=== PATIENT | male | born 1930 | race Caucasian/White ===

== ENCOUNTER 2016-06-04 23:32 | Inpatient (IN) | payer MEDICARE, OTHER ==
--- NOTE | ~2016-06-04 | HP ---
History And Physical [facility] [address] [place]. [address] NAME: ELÍAS ROCHA : 30 STATUS : ADM Nya PAT#: [id number] AGE: 85 ADM/REG DATE : 06/05/16 MR#: [id number] REPORT SERV DATE: 06/05/16 DICTATED BY: RAYMOND QUESADA DATE: 06/05/16 REPORT STATUS : Draft TRANSCRIBED BY: MODL DATE: 06/05/16 DATE OF ADMISSION: 06/05/2016 CHIEF COMPLAINT: Shortness of breath. HISTORY OF PRESENT ILLNESS: This is an 85-year-old male with a history of atrial fibrillation followed by Dr. Marvin Spencer, pacemaker placement, history of nonsustained ventricular tachycardias, and critical aortic stenosis, who was in his usual state of health until yesterday in the evening when he started having profound shortness of breath. He also had some confusion and family decided to bring him to the emergency room to be evaluated. According to the patient's son, who is at bedside, Mr. Rocha has had serious health issues since late 01/2016 on into this year when he has been in and out of hospitals repeatedly for one thing or the other. Several of these have been due to volume overload and with trouble breathing. In the emergency room, initial workup revealed he had a BNP of 1580. His lactate was 1.4. Chest x-ray showed no change from prior films. EKG showed a paced ventricular rhythm at a rate of 74 per minute. Hospitalist Service is asked to admit him for further evaluation, management of his exacerbation of COPD, and volume overload. At the time of my evaluation, he denied any chest pain, palpitations, or orthopnea. His son says he did have a cough, which was essentially nonproductive, not associated with any hemoptysis, night sweats, or weight loss. He has not had any recent falls or loss of consciousness. He did not have any fevers or chills. No history of nausea, vomiting, or diarrhea. No history of bleeding anywhere. No other history of recent travel or exposures other than those mentioned above. PAST MEDICAL HISTORY: Significant for history of nonsustained ventricular tachycardia; history of congestive heart failure; pacemaker placement; severe critical aortic stenosis of 0.8 meter square in 02/2016; history of renal artery stenosis; obstructive sleep apnea, on CPAP therapy; hypogonadism; chronic elevation in troponin; and carotid endarterectomy. SOCIAL HISTORY: He has a history of smoking. No history of recent alcohol use or recreational drug use. 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 FAMILY HISTORY: Noncontributory. MEDICATIONS: His medications at home were reviewed by me in the chart today and reordered by me. REVIEW OF SYSTEMS: As in history of present illness. All other systems were reviewed in detail and are quite unremarkable. History And Physical [address] [address] NAME: ELÍAS ROCHA : 30 STATUS : ADM Nya PAT#: [id number] AGE: 85 ADM/REG DATE : 06/05/16 MR#: [id number] REPORT SERV DATE: 06/05/16 DICTATED BY: RAYMOND QUESADA DATE: 06/05/16 REPORT STATUS : Draft TRANSCRIBED BY: AGUSTINA DATE: 06/05/16 PHYSICAL EXAMINATION: GENERAL: This is a pleasant 85-year-old, not in any acute distress. HEENT: His head is atraumatic, normocephalic. He is alert, awake, and oriented to time, place, and person. Pupils are equal, reacting to light and accommodating. External ocular muscles are intact. Membranes are moist and pink. Sclerae are nonicteric. NECK: Supple with no jugular venous distention, lymphadenopathy, or thyromegaly. LUNGS: Auscultation of his lungs revealed diffuse bilateral expiratory wheezes with bibasilar crackles as well. Trachea appeared to be in midline. HEART: Auscultation of his heart revealed regular rate and rhythm with no murmurs, rubs, or gallops appreciated. ABDOMEN: Soft and nontender. Bowel sounds are present. EXTREMITIES: Showed no cyanosis, clubbing, or edema. NEURO: Grossly intact. No focal sensory or motor deficits. He answers questions appropriately. VITAL SIGNS: Today showed a temperature of 102.2 degrees Fahrenheit, pulse 63, respirations 24 a minute, blood pressure was 164/109, oxygen saturations were 100% on 2 L of oxygen via nasal cannula. LABORATORY DATA: Reviewed on the [facility] system showed a normal CMP with a troponin of 0.10. CBC showed a white blood cell count of 9000. Hemoglobin was 9.6 and hematocrit 28.5, which is around his baseline. His MCV was 96.3 and platelet count was 165,000. Influenza A and B were negative today. Urinalysis showed no gross abnormality. Films of his chest x- ray were reviewed by me on the PACS today and interpreted by me. There is normal bony architecture with multiple monitoring devices from his Life[employer]est and a left-sided pacemaker. Lung bateman appear clear with no lobar consolidations, effusions, or infiltrates. A 12-lead EKG done in the emergency room was reviewed and interpreted by me. There is ventricular paced rhythm at 74 per minute. IMPRESSION: 1. Shortness of breath. 2. Chronic obstructive pulmonary disease with acute exacerbation. 3. Volume overload. 4. Atrial fibrillation. 5. Elevated troponin. 6. Atrial fibrillation, followed by Dr. Spencer. 7. Pacemaker placement. 8. Nonsustained ventricular tachycardia. 9. Severe critical aortic stenosis. 10.Obstructive sleep apnea, on CPAP therapy. PLAN: We will admit Mr. Rocha to the Hospitalist Service with cardiac telemetry for a 24- hour observation. The patient was brought here on BiPAP, but was quickly titrated off. He is tolerating oxygen via nasal cannula just fine. We will go ahead and maximize his bronchodilator treatments, continue supplemental oxygen therapy, start him on inhaled corticosteroids and IV steroids. We will also place him on empiric IV antibiotics after cultures are obtained. He is on Eliquis, which we will be continuing. We will follow troponin levels, although it has been historically elevated. We will go ahead and consult History And Physical [address] [address] NAME: ELÍAS ROCHA : 30 STATUS : ADM Nya PAT#: [id number] AGE: 85 ADM/REG DATE : 06/05/16 MR#: [id number] REPORT SERV DATE: 06/05/16 DICTATED BY: RAYMOND QUESADA DATE: 06/05/16 REPORT STATUS : Draft TRANSCRIBED BY: MODL DATE: 06/05/16 Dr. Spencer as well. We will start him on IV diuretics for a 24-hour period and follow strict outputs and daily weights. We will continue all other medications here as well. Pharmacy will need to follow up on his medications. I have discussed the above plans with the patient and the family. Questions were answered and they are agreeable to the above recommendations. Hospitalist Service will be following him during his stay here. /AGUSTINA Raymond Quesada M.D. / [id number] CC: MD FLORENCE Fernandez
--- NOTE | ~2016-06-04 | DS ---
Discharge Summary [facility] [address] [place]. [address] NAME: ELÍAS ROCHA : 30 STATUS : DIS IN PAT#: [id number] AGE: 85 ADM/REG DATE : 06/05/16 MR#: [id number] REPORT SERV DATE: 06/08/16 DICTATED BY: ELIZA ORTEGA DATE: 06/07/16 REPORT STATUS : Draft TRANSCRIBED BY: MODL DATE: 06/07/16 ADMISSION DATE: 06/05/2016 DISCHARGE DATE: 06/07/2016 The patient is an 85-year-old male with a history of severe aortic stenosis, heart failure with reduced EF, nonischemic cardiomyopathy, and COPD, who presented to the hospital with a complaint of shortness of breath. For further details please refer to H and P dictated by Dr. Cunningham on 06/05/2016. HOSPITAL COURSE: I assumed care of the patient on 06/07/2016. At the time of my assumption of care the patient already had been seen by change room attendant. From chart review likely etiology of his shortness of breath likely due to severe aortic stenosis. Cardiology was consulted on the case. The patient was started on Bumex 1 mg p.o. daily and his medication was also optimized to include Entresto. The patient has remained hemodynamically stable. Given his severe aortic stenosis with symptoms the plan is for the patient to follow up with [facility] for TAVR on 06/21/2016. At the time of my assumption of care, plan for that was already made. The patient was hemodynamically stable. Cardiology had signed off on patient. Given conclusion of workup and given his hemodynamic stability, the patient will be discharged to follow up with Cardiology and Primary Care. Of note, his imaging was concerning at the time of presentation. Prior to my assumption of care, the patient had a CT chest without contrast which noted a persistent irregular mass on the right side concerning for new neoplasm. The patient will need follow up in about six months to further correct the mass and also note, if symptoms have resolved. Given this, irregular finding the patient was started on prophylactic antibiotics. He will be D/C'd on Levaquin for four days to complete therapy. Plan has been discussed with the patient who voices understanding and is agreeable with this plan. DISCHARGE DIAGNOSES: 1. Severe aortic stenosis. 2. Heart failure with reduced EF. 3. Nonischemic cardiomyopathy. 4. Chronic obstructive pulmonary disease. 5. Peripheral arterial disease. 6. Permanent atrial fibrillation. DISCHARGE PHYSICAL EXAMINATION: GENERAL: The patient was sitting in bed, in no acute distress. Appears stated age. Speaking in full sentences. HEENT: Normocephalic and atraumatic. Extraocular motors intact. Moist oral mucosa. NECK: Trachea midline and symmetric. No JVD noted. No thyromegaly present. CHEST: Nontender to palpation. CARDIOVASCULAR: Regular rate and rhythm. S1, S2. No murmurs, rubs, or gallops. LUNGS: Equal chest expansion. Normal respiratory effort. Anterior lung bateman clear to auscultation. ABDOMEN: Positive bowel sounds. Nontender. Nondistended. EXTREMITIES: No cyanosis, no clubbing, no edema. NEURO: Alert and oriented x3. Discharge Summary [address] [address] NAME: ELÍAS ROCHA : 30 STATUS : DIS IN PAT#: [id number] AGE: 85 ADM/REG DATE : 06/05/16 MR#: [id number] REPORT SERV DATE: 06/08/16 DICTATED BY: ELIZA ORTEGA DATE: 06/07/16 REPORT STATUS : Draft TRANSCRIBED BY: AGUSTINA DATE: 06/07/16 DISCHARGE MEDICATIONS: 1. Eliquis 2.5 mg p.o. daily. 2. Bumex 1 mg p.o. daily. 3. Carvedilol 3.125 mg p.o. twice a day. 4. Plavix 75 mg p.o. at bedtime. 5. Vitamin B12 1000 mcg p.o. daily. 6. Vitamin D 2000 units p.o. daily. 7. Folic acid 1 mg p.o. daily. 8. Singulair 10 mg p.o. at bedtime. 9. B complex one tablet p.o. daily. 10.Pantoprazole 40 mg p.o. daily. 11.Simvastatin 10 mg p.o. at bedtime. 12.Tamsulosin 0.4 mg p.o. daily. 13.The patient was started on Entresto, that medication to be addressed by Cardiology. 14.Budesonide 0.5 mg inhalation p.o. twice a day. IMAGING: CT chest without contrast. Impression: 1. Although, pneumonia has improved on the right side, there is still an irregular mass, this could represent continued pneumonia or underlying neoplasm. 2. Persistent pleural effusion. 3. Cardiomegaly, extensive coronary artery disease, and pacemaker. All noted stable. CONSULTANTS: Marvin Spencer M.D. of cardiology. DISPOSITION: The patient will be discharged home to follow up with [facility] for TAVR on 06/21/2016. Also, the patient to follow up with primary care physician in seven to ten days. ACTIVITY: As tolerated. DIET: Cardiac diet. Greater than 30 minutes were spent coordinating care, planning discharge, medication reconciliation, chart review, providing counseling. TUTU/AGUSTINA Eliza Ortega MD / [id number] CC: Eliza Ortega MD Discharge Summary [address] [address] NAME: ELÍAS ROCHA : 30 STATUS : DIS IN PAT#: [id number] AGE: 85 ADM/REG DATE : 06/05/16 MR#: [id number] REPORT SERV DATE: 06/08/16 DICTATED BY: ELIZA ORTEGA DATE: 06/07/16 REPORT STATUS : Draft TRANSCRIBED BY: AGUSTINA DATE: 06/07/16 Angelique Marin MD
[~2016-06-04 23:32] MED LIST: ALBUTEROL5 INH; ARIMIDEX1 PO; ASAB; CARDCD120; CENTRUM PO; COREG3 PO; COZ25 PO; COZ50 PO; CYANO1000T PO; DEMA20 PO; DSS PO; DUONEB INH; ELIQUIS 2.5 MG2.5 MG PO; FLOMAX4 PO; FOLIC PO; INSPRA25; IRON325 MG PO; KLOR-CON M2020 MEQ PO; L40 PO; PLAVIX PO; PRADAXA150 MG PO; PRILOSEC10 MG; PRILOSEC40 MG PO; PROTONIX PO; PULRESP.5 INH; PULRESP1 PO; SINGULAIR1 PO; SPIRO50 PO; THERGRANM PO; ZOCOR10 PO
[2016-06-04] MEDS ORDERED: PROTONIX (23:39)
[2016-06-04] MEDS ORDERED: ELIQUIS (23:39)
[2016-06-04] MEDS ORDERED: FLOMAX4 (23:40)
[2016-06-04] MEDS ORDERED: COZ50 (23:40)
[2016-06-04] MEDS ORDERED: DEMA20 (23:40)
[2016-06-04] MEDS ORDERED: COREG3 (23:40)
[2016-06-04] MEDS ORDERED: PULRESP.5 (23:41)
[2016-06-04] MEDS ORDERED: MULTIVIT/MIN (23:41)
[2016-06-04] MEDS ORDERED: DUONEB (23:41)
[2016-06-04] MEDS ORDERED: PLAVIX (23:42)
[2016-06-04] MEDS ORDERED: DIALYVITE (23:42)
[2016-06-04] MEDS ORDERED: VITAMIN B-121000 MC1 (23:42)
[2016-06-04] MEDS ORDERED: VITAMIN D2000 UNIT (23:42)
[2016-06-04] MEDS ORDERED: T (23:43)
[2016-06-04] MEDS ORDERED: SINGULAIR1 (23:43)
[2016-06-04] MEDS ORDERED: ZOFRAN4 (23:43)
[2016-06-04] MEDS ORDERED: SENTAB (23:43)
[2016-06-04] MEDS ORDERED: FOLIC (23:43)
[2016-06-04 23:54] LABS: BASOPHILS 0.4 %; BASOPHILS ABSOLUTE 0.04 10/3/uL (0.0-0.16); EOSINOPHILS 1.6 %; EOSINOPHILS ABSOLUTE 0.14 10/3/uL (0.0-0.53); ER CBC TAT 0 Hrs 16 Mins; HEMOGLOBIN 9.6 g/dL (13.6-17.8); IMMATURE GRANULOCYTES 0.2 %; IMMATURE GRANULOCYTES ABSOLUTE 0.02 10/3/uL (0.0-0.11); LYMPHOCYTES 15.9 %; LYMPHOCYTES ABSOLUTE 1.43 10/3/uL (0.67-4.30); MEAN CORPUS HGB CONC 33.7 g/dL (32.0-36.0); MEAN CORPUSCULAR HEMOGLOB 32.4 pg (26.0-34.0); MEAN CORPUSCULAR VOLUME 96.3 fL (80-100); MEAN PLATELET VOLUME 10.7 fL (9.2-13.0); MONOCYTES 16.5 %; MONOCYTES ABSOLUTE 1.48 10/3/uL (0.21-1.20); NEUTROPHILS 65.4 %; NEUTROPHILS ABSOLUTE 5.87 10/3/uL (2.02-8.40); PLATELET COUNT 165 10/3/uL (150-400); RBC DISTRIBUTION WIDTH 14.1 % (12.0-16.0); RED CELL COUNT 2.96 10/6/uL (4.7-6.1)
[2016-06-04 23:56] LABS: INTERNATIONAL NORMAL RATI 1.8 UNITS (-); PROTIME (NOT ORD) 20.8 SEC (12.0-14.5)
[2016-06-05 00:01] LABS: HEMATOCRIT 28.5 % (40.0-51.0)
[2016-06-05 00:02] LABS: MANUAL DIFF NO %
[2016-06-05 00:05] LABS: ALBUMIN 3.4 G/DL (3.5-5.0); ALKALINE PHOSPHATASE 113 U/L (45-117); BUN (BLOOD UREA NITROGEN) 22 MG/DL (6-23); CALCIUM, SERUM 8.5 MG/DL (8.5-10.4); CHLORIDE, SERUM 100 MMOL/L (96-112); CO2 (CARBON DIOXIDE) 28 MMOL/L (24-34); CREATININE 1.04 MG/DL (0.70-1.30); GFR AFRICAN AMERICAN 76 ML/MIN (>=60); GFR NON AFRICAN AMERICAN 65 ML/MIN (>=60); GLOBULIN 3.4 G/DL (2.5-4.1); GLUCOSE, SERUM 95 MG/DL (60-99); SGOT(AST) 24 U/L (5-40); SGPT(ALT) 12 U/L (5-65); SODIUM, SERUM 137 MMOL/L (135-148); TOTAL PROTEIN 6.8 G/DL (6.0-8.5)
[2016-06-05 00:50] LABS: ASCORBIC ACID (UR NOT ORDER) 20 (NEG); BILIRUBIN, URINE NEGATIVE (NEG); KETONE, URINE NEGATIVE (NEG); LEUKOCYTE ESTERASE(NOT OR NEG (NEG); NITRITE (URINE) NEG (NEG); WBC (NOT ORDERED) (RFLEX) < 1 (0-5)
[2016-06-05 01:02] LABS: INFLUENZA A SCREEN NEGATIVE (NEGATIVE); INFLUENZA B SCREEN NEGATIVE (NEGATIVE)
[2016-06-05 07:37] LABS: BASOPHILS 0.5 %; BASOPHILS ABSOLUTE 0.04 10/3/uL (0.0-0.16); EOSINOPHILS 0.5 %; EOSINOPHILS ABSOLUTE 0.04 10/3/uL (0.0-0.53); HEMOGLOBIN 9.5 g/dL (13.6-17.8); IMMATURE GRANULOCYTES 0.2 %; IMMATURE GRANULOCYTES ABSOLUTE 0.02 10/3/uL (0.0-0.11); LYMPHOCYTES 18.2 %; LYMPHOCYTES ABSOLUTE 1.56 10/3/uL (0.67-4.30); MEAN CORPUS HGB CONC 33.9 g/dL (32.0-36.0); MEAN CORPUSCULAR HEMOGLOB 32.5 pg (26.0-34.0); MEAN CORPUSCULAR VOLUME 95.9 fL (80-100); MEAN PLATELET VOLUME 10.7 fL (9.2-13.0); MONOCYTES 15.4 %; MONOCYTES ABSOLUTE 1.32 10/3/uL (0.21-1.20); NEUTROPHILS 65.2 %; PLATELET COUNT 143 10/3/uL (150-400); RBC DISTRIBUTION WIDTH 14.1 % (12.0-16.0); RED CELL COUNT 2.92 10/6/uL (4.7-6.1); WHITE BLOOD CELLS 8.6 10/3/uL (4.5-10.5)
[2016-06-05 07:38] LABS: MANUAL DIFF NO %
[2016-06-05 07:58] LABS: BUN (BLOOD UREA NITROGEN) 19 MG/DL (6-23); CALCIUM, SERUM 8.7 MG/DL (8.5-10.4); CHLORIDE, SERUM 101 MMOL/L (96-112); CK-MB 2.1 NG/ML; CO2 (CARBON DIOXIDE) 26 MMOL/L (24-34); CPK 117 U/L (0-200); CREATININE 0.94 MG/DL (0.70-1.30); GFR AFRICAN AMERICAN 85 ML/MIN (>=60); GFR NON AFRICAN AMERICAN 74 ML/MIN (>=60); GLUCOSE, SERUM 97 MG/DL (60-99); POTASSIUM, SERUM 3.9 MMOL/L (3.5-5.3); SODIUM, SERUM 138 MMOL/L (135-148); TROPONIN I 0.14 NG/ML (<0.05)
[2016-06-05] MEDS ORDERED: ELIQUIS 2.5 MG2.5 MG PO (11:38)
[2016-06-05] MEDS ORDERED: COREG3 PO (11:38)
[2016-06-05] MEDS ORDERED: FLOMAX4 PO (11:38)
[2016-06-05] MEDS ORDERED: COZ50 PO (11:38)
[2016-06-05] MEDS ORDERED: PROTONIX PO (11:38)
[2016-06-05] MEDS ORDERED: DEMA20 PO ×2 (11:38→11:39)
[2016-06-05] MEDS ORDERED: PULRESP.5 INH (11:40)
[2016-06-05] MEDS ORDERED: DIALYVITE PO (11:40)
[2016-06-05] MEDS ORDERED: CENTRUM PO (11:41)
[2016-06-05] MEDS ORDERED: CYANO1000T PO (11:41)
[2016-06-05] MEDS ORDERED: SENTAB PO (11:42)
[2016-06-05] MEDS ORDERED: PLAVIX PO (11:42)
[2016-06-05] MEDS ORDERED: ZOCOR10 PO (11:42)
[2016-06-05] MEDS ORDERED: 8 HOUR650 MG PO (11:43)
[2016-06-05] MEDS ORDERED: FOLIC PO (11:43)
[2016-06-05] MEDS ORDERED: DUONEB INH (11:43)
[2016-06-05] MEDS ORDERED: VITAMIN D1000 UNI1 PO (11:45)
[2016-06-05] MEDS ORDERED: SINGULAIR1 PO (11:45)
[2016-06-05 14:01] LABS: PROCALCITONIN 0.08 ng/mL (<0.5)
[2016-06-05 16:34] LABS: CPK 110 U/L (0-200)
[2016-06-05 16:35] LABS: CK-MB 1.4 NG/ML; TROPONIN I 0.09 NG/ML (<0.05)
[2016-06-06 05:32] LABS: BASOPHILS 0 %; EOSINOPHILS 0 %; HEMATOCRIT 30.1 % (40.0-51.0); HEMOGLOBIN 10.4 g/dL (13.6-17.8); IMMATURE GRANULOCYTES 0.2 %; IMMATURE GRANULOCYTES ABSOLUTE 0.02 10/3/uL (0.0-0.11); LYMPHOCYTES 8.9 %; LYMPHOCYTES ABSOLUTE 0.74 10/3/uL (0.67-4.30); MEAN CORPUS HGB CONC 34.6 g/dL (32.0-36.0); MEAN CORPUSCULAR HEMOGLOB 32.9 pg (26.0-34.0); MEAN CORPUSCULAR VOLUME 95.3 fL (80-100); MEAN PLATELET VOLUME 10.7 fL (9.2-13.0); MONOCYTES 5.6 %; MONOCYTES ABSOLUTE 0.47 10/3/uL (0.21-1.20); NEUTROPHILS 85.3 %; PLATELET COUNT 138 10/3/uL (150-400); RBC DISTRIBUTION WIDTH 13.4 % (12.0-16.0); RED CELL COUNT 3.16 10/6/uL (4.7-6.1); WHITE BLOOD CELLS 8.3 10/3/uL (4.5-10.5)
[2016-06-06 05:33] LABS: CALCIUM, SERUM 8.6 MG/DL (8.5-10.4); CHLORIDE, SERUM 100 MMOL/L (96-112); CO2 (CARBON DIOXIDE) 26 MMOL/L (24-34); GFR AFRICAN AMERICAN 71 ML/MIN (>=60); GFR NON AFRICAN AMERICAN 61 ML/MIN (>=60); PHOSPHORUS, SERUM 2.8 MG/DL (2.5-4.5); POTASSIUM, SERUM 3.7 MMOL/L (3.5-5.3); SODIUM, SERUM 137 MMOL/L (135-148)
[2016-06-06 05:35] LABS: BUN (BLOOD UREA NITROGEN) 26 MG/DL (6-23); GLUCOSE, SERUM 161 MG/DL (60-99)
[2016-06-06 05:49] LABS: MANUAL DIFF NO %
[2016-06-07 06:16] LABS: BASOPHILS 0 %; EOSINOPHILS 0 %; HEMATOCRIT 28.7 % (40.0-51.0); HEMOGLOBIN 10.1 g/dL (13.6-17.8); IMMATURE GRANULOCYTES 0.2 %; IMMATURE GRANULOCYTES ABSOLUTE 0.03 10/3/uL (0.0-0.11); LYMPHOCYTES 7.4 %; LYMPHOCYTES ABSOLUTE 0.89 10/3/uL (0.67-4.30); MEAN CORPUS HGB CONC 35.2 g/dL (32.0-36.0); MEAN CORPUSCULAR HEMOGLOB 33.3 pg (26.0-34.0); MEAN CORPUSCULAR VOLUME 94.7 fL (80-100); MEAN PLATELET VOLUME 10.5 fL (9.2-13.0); MONOCYTES 8.5 %; MONOCYTES ABSOLUTE 1.02 10/3/uL (0.21-1.20); NEUTROPHILS 83.9 %; NEUTROPHILS ABSOLUTE 10.12 10/3/uL (2.02-8.40); PLATELET COUNT 162 10/3/uL (150-400); RBC DISTRIBUTION WIDTH 13.7 % (12.0-16.0); RED CELL COUNT 3.03 10/6/uL (4.7-6.1)
[2016-06-07 06:19] LABS: MANUAL DIFF NO %; WHITE BLOOD CELLS 12.1 10/3/uL (4.5-10.5)
[2016-06-07 06:31] LABS: PHOSPHORUS, SERUM 3.3 MG/DL (2.5-4.5)
[2016-06-07 09:20] LABS: BUN (BLOOD UREA NITROGEN) 26 MG/DL (6-23); CALCIUM, SERUM 8.3 MG/DL (8.5-10.4); CHLORIDE, SERUM 105 MMOL/L (96-112); CO2 (CARBON DIOXIDE) 26 MMOL/L (24-34); CREATININE 1.09 MG/DL (0.70-1.30); GFR AFRICAN AMERICAN 71 ML/MIN (>=60); GFR NON AFRICAN AMERICAN 62 ML/MIN (>=60); GLUCOSE, SERUM 139 MG/DL (60-99); POTASSIUM, SERUM 3.5 MMOL/L (3.5-5.3); SODIUM, SERUM 141 MMOL/L (135-148)
[2016-06-07] MEDS ORDERED: BUM1 PO (13:19)
[2016-06-07] MEDS ORDERED: LEVAQUIN750 MG PO (13:29)
[2016-06-07] MEDS ORDERED: SACU1TAB PO (15:26)
[2016-06-07] MEDS ORDERED: DUONEB INH (16:34)
== END 2016-06-07 18:53 | disposition home health service (06) | DRG 291 ==
LOC: ER 23:32 → 7NO 06-05 02:59
PROVIDERS: Emergency Medicine; Internal Medicine; Internal Medicine Pulmonary Disease
DX: I50.23 Acute on chronic systolic (congestive) heart failure (principal); J96.01 Acute respiratory failure with hypoxia; I47.2 Ventricular tachycardia; J44.1 Chronic obstructive pulmonary disease with (acute) exacerbation; I35.1 Nonrheumatic aortic (valve) insufficiency; Z95.0 Presence of cardiac pacemaker; G47.33 Obstructive sleep apnea (adult) (pediatric); I35.0 Nonrheumatic aortic (valve) stenosis; I48.2 Chronic atrial fibrillation; Z87.891 Personal history of nicotine dependence; Z99.81 Dependence on supplemental oxygen
CPT/HCPCS: 36600; 71010; 71250; 80048; 80053; 81001; 82330; 82550; 82553; 82803; 82947; 83605; 83735; 83880; 84100; 84132; 84145; 84295; 84443; 84484; 85014; 85025; 85610; 87040; 87449; 87804; 93005; 94640; 94660; 96374; 97110-GP; 97116-GP; 97162-GP; 99285; A9270-GY; G8978-CJ-GP; G8979-CI-GP; J0692; J1956; J2543; J2930; J3370